=== PATIENT | female | born 1945 | race Caucasian/White ===

== ENCOUNTER 2019-11-24 18:40 | Emergency (ER) | payer MEDICARE, OTHER ==
[~2019-11-24] VITALS: Ht 162.6 cm; Wt 115.0 kg
[~2019-11-24 18:40] MED LIST: ASPI500T13 PO; CAND16TA12 PO; CBD PO; FURO20TA3 PO; POTA10TA31 PO; TRIA1CAP3 PO
--- NOTE | 2019-11-24 18:55 | NUR ---
THIS PT BIB [facility] FOR ARM PAIN AND LEG SWELLING. PT IN GOWN, EKG DONE, CONNECTED TO MONITORS, PT MAKING JOKES, NO SIGNS OF DISTRESS, VSS. ERP TO BEDSIDE.
[2019-11-24] MEDS ORDERED: HYDR-3237 PO (18:57)
--- NOTE | 2019-11-24 19:06 | NUR ---
LAB AT BEDSIDE FOR BLOOD DRAW.
--- NOTE | 2019-11-24 19:13 | NUR ---
REPORT GIVEN TO HELENA DELACRUZ. JAYME TO ASSUME CARE.
[2019-11-24 19:20] LABS: BASOPHILS # (AUTO) 0.04 x10^3/uL (0-0.1); BASOPHILS % (AUTO) 0 % (0-1); EOSINOPHILS # (AUTO) 0.32 x10^3/uL (0-0.4); EOSINOPHILS % (AUTO) 3 % (1-7); LYMPHOCYTES # (AUTO) 1.71 x10^3/uL (1-3.4); LYMPHOCYTES % (AUTO) 17 % (22-44); MD NO; MEAN CORPUSCULAR HEMOGLOBIN 29.2 pg (27.0-34.8); MEAN CORPUSCULAR HGB CONC 33.4 g/dL (32.4-35.8); MEAN CORPUSCULAR VOLUME 87.4 fL (80-100); MEAN PLATELET VOLUME 8.7 fL (7.4-10.4); MONOCYTES # (AUTO) 0.95 x10^3/uL (0.2-0.8); MONOCYTES % (AUTO) 10 % (2-9); NEUTROPHILS # (AUTO) 6.98 x10^3/uL (1.8-6.8); NEUTROPHILS % (AUTO) 70 % (42-75); PLATELET COUNT 189 x10^3/uL (130-400); RED BLOOD COUNT 4.83 x10^6/uL (3.82-5.3); RED CELL DISTRIBUTION WIDTH 14.8 % (9.6-15.2)
--- NOTE | 2019-11-24 19:20 | NUR ---
PLACED ON DEDICATED INTERMODAL [employer]UCK [employer]. U/S TECH AT BEDSIDE.
[2019-11-24 19:32] LABS: ALANINE AMINOTRANSFERASE 24 U/L (12-78); ALBUMIN 3.4 g/dL (3.4-5.0); ANION GAP 8 mmol/L (5-15); CALCIUM 9.4 mg/dL (8.5-10.1); CHLORIDE 104 mmol/L (98-107); CREATININE 1.57 mg/dL (0.55-1.02)
[2019-11-24 19:37] LABS: ALKALINE PHOSPHATASE 80 U/L (45-117); BILIRUBIN,TOTAL 0.4 mg/dL (0.2-1.0); TOTAL PROTEIN 7.8 g/dL (6.4-8.2); TROPONIN I < 0.015 ng/mL (0.000-0.045)
--- NOTE | 2019-11-24 19:59 | NUR ---
RESTING ON GURNEY, DENIES PAIN AT THIS TIME WITHOUT MOVEMENT. VSS.
--- NOTE | 2019-11-24 20:46 | NUR ---
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 PT REPORTS PAIN 10/10 WITH RIGHT ARM MOVEMENT. UPDATED ERP.
[2019-11-24] MEDS ORDERED: KETOROLAC 30 MG/1 ML ONE (21:00)
[2019-11-24] MEDS ORDERED: ACETAMINOPHEN 500 MG TABLET ONE (21:00)
[2019-11-24] MEDS ORDERED: ACETAMINOPHEN 500 MG TABLET PO ONE (21:00)
[2019-11-24] MEDS ORDERED: KETOROLAC 30 MG/1 ML IM ONE (21:00)
[2019-11-24 21:07] VITALS: BP 110/56
== END 2019-11-24 21:46 | disposition home or self-care (01) ==
LOC: ED 19:08
DX: S42.202A Unspecified fracture of upper end of left humerus, initial encounter for closed fracture (principal); I87.2 Venous insufficiency (chronic) (peripheral); N17.9 Acute kidney failure, unspecified; R94.31 Abnormal electrocardiogram [ECG] [EKG]; I10 Essential (primary) hypertension; W18.30XA Fall on same level, unspecified, initial encounter; Y93.89 Activity, other specified; Y92.89 Other specified places as the place of occurrence of the external cause; Y99.8 Other external cause status
CPT/HCPCS: 36415; 71045; 80053; 83880; 84484; 85025; 93005; 93970; 96372; 99285; J1885